=== PATIENT | male | born 1955 | race Two or more races ===

== ENCOUNTER 2018-02-25 18:56 | Inpatient (IN) | payer BC ==
[~2018-02-25] VITALS: Ht 167.6 cm; Wt 68.0 kg
--- NOTE | 2018-02-25 19:12 | NUR ---
PT C/O LEFT SIDED CP X 2 WEEKS RADIATES TO LEFT ARM AND LEFT SHOULDER BACK
[2018-02-25] MEDS ORDERED: MORPHINE SULFATE INJ 4 MG/ML DISP.SYRIN ONE (19:18)
[2018-02-25] MEDS ORDERED: ASPIRIN 325 MG TABLET ONE (19:19)
[2018-02-25] MEDS ORDERED: NITROGLYCERIN PACKET 1 GM PACKET ONE (19:19)
[2018-02-25 19:23] LABS: BASOPHILS # (AUTO) 0.1 /CMM (0.0-0.2); BASOPHILS % (AUTO) 0.7 % (0.0-2.0); EOSINOPHILS % (AUTO) 0.6 % (0.0-6.0); HEMATOCRIT 42 % (39-51); HEMOGLOBIN 14.6 g/dL (13.5-17.5); LYMPHOCYTES # (AUTO) 1.9 /CMM (0.8-4.8); LYMPHOCYTES % (AUTO) 22.2 % (20.0-44.0); MEAN CORPUSCULAR HGB CONC 34 g/dl (31.0-36.0); MEAN CORPUSCULAR VOLUME 89 fL (80-96); MONOCYTES # (AUTO) 0.4 /CMM (0.1-1.30); MONOCYTES % (AUTO) 4.8 % (2.0-12.0); NEUTROPHILS # (AUTO) 6.2 /CMM (1.8-8.9); NEUTROPHILS % (AUTO) 71.7 % (43.0-81.0); PLATELET COUNT (AUTO) 255 /CMM (150-450); RDW COEFFICIENT OF VARIATION 13.7 (11.5-15.0); RED BLOOD CELL COUNT(AUTO) 4.75 MIL/uL (4.5-6.0); WHITE BLOOD COUNT (AUTO) 8.7 K/uL (4.3-11.0)
[2018-02-25] MEDS ORDERED: NITROGLYCERIN PACKET 1 GM PACKET TD ONE (19:30)
[2018-02-25] MEDS ORDERED: MORPHINE SULFATE INJ 2 MG/ML DISP.SYRIN IV ONE (19:30)
[2018-02-25] MEDS ORDERED: ASPIRIN 325 MG TABLET PO ONE (19:30)
[2018-02-25 19:36] LABS: CALCIUM, SERUM 9.4 mg/dL (8.5-10.1); CARBON DIOXIDE 25 mmol/L (21-32); CHLORIDE 103 mmol/L (98-107); CREATININE 1.1 mg/dL (0.6-1.3); GLUCOSE 134 mg/dL (74-106); POTASSIUM 4.1 mmol/L (3.5-5.1); SODIUM SERUM 137 mmol/L (136-145); UREA NITROGEN, BLOOD 17 mg/dL (7-18)
[2018-02-25 19:38] LABS: INR 0.89 (0.85-1.15)
[2018-02-25 19:44] LABS: TROPONIN I < 0.017 ng/mL (0.00-0.056)
--- NOTE | 2018-02-25 20:26 | NUR ---
Called the Nursing [employer] and requested a telemetry bed for this patient.
[2018-02-25 20:30] VITALS: BP 128/74
--- NOTE | 2018-02-25 20:57 | NUR ---
PT IS ASSIGNED TO [facility]#: [id number], PT IS DIAGNOSED WITH CHEST PAIN, AND DR VALENTINE IS THE ACCEPTING MD.
--- NOTE | 2018-02-25 21:15 | NUR ---
GAVE REPORT TO BERNADETTE VALENTINE ADMITTING
[2018-02-25 21:30] VITALS: BP 128/74
[2018-02-25] MEDS ORDERED: ACETAMINOPHEN 325 MG TABLET PO PRN (22:00)
[2018-02-25] MEDS ORDERED: ZOLPIDEM TARTRATE 5 MG TABLET PO PRN (22:00)
[2018-02-25] MEDS ORDERED: HYDROCODONE/APAP 5/325MG 1 EACH TABLET PO PRN (22:00)
--- NOTE | 2018-02-25 22:49 | NUR ---
RN NOTES RECEIVE PT AT 2130 VIA GURNEY FROM [facility] A/O X4 , ATTACH TELE MONITOR TOLERATING ROOM AIR 99% HEAD TO TOE ASSESSMENT IS DONE SKIN IS INTACT. VSS. NO S/S OF DISTRESS, STABLE, SAFETY MEASURES IN PLACE, CALL LIGHT WITHIN REACH, WILL CONTINUE TO MONITOR
[2018-02-26] VITALS: BP 118/74
[2018-02-26 04:00] VITALS: BP 124/68
--- NOTE | 2018-02-26 06:45 | NUR ---
BAT CARRIER NOTES PT ASLEEP COMFORTABLY IN BED AND EASILY AWAKEN SEMI FOWLERS POSITION TOLERATING ROOM AIR 98%, ATTACH TO TELE MONITOR SR 69'S NOT IN RESPIRATORY DISTRESS. STABLE CONDITION. NO ACUTE CHANGES THROUGHOUT THE SHIFT. KEPT CLEAN AND DRY AND COMFORTABLE. NURSING CARE RENDERED. NEEDS ATTENDED AND ANTICIPATED. NO C/O OF PAIN. ON LOW BED TO ENSURE SAFETY, CALL LIGHT WITHIN REACH, WILL ENDORSE TO THE NEXT SHIFT CONTINUE PLAN OF CARE
[2018-02-26 06:48] LABS: BASOPHILS % (AUTO) 0.5 % (0.0-2.0); EOSINOPHILS % (AUTO) 2.1 % (0.0-6.0); HEMATOCRIT 38 % (39-51); HEMOGLOBIN 12.9 g/dL (13.5-17.5); LYMPHOCYTES # (AUTO) 2.1 /CMM (0.8-4.8); LYMPHOCYTES % (AUTO) 21.9 % (20.0-44.0); MEAN CORPUSCULAR HGB CONC 34 g/dl (31.0-36.0); MEAN CORPUSCULAR VOLUME 91 fL (80-96); MONOCYTES # (AUTO) 0.9 /CMM (0.1-1.30); MONOCYTES % (AUTO) 9.5 % (2.0-12.0); NEUTROPHILS # (AUTO) 6.4 /CMM (1.8-8.9); PLATELET COUNT (AUTO) 220 /CMM (150-450); RDW COEFFICIENT OF VARIATION 15.2 (11.5-15.0); RED BLOOD CELL COUNT(AUTO) 4.22 MIL/uL (4.5-6.0); WHITE BLOOD COUNT (AUTO) 9.7 K/uL (4.3-11.0)
[2018-02-26 06:59] LABS: TROPONIN I < 0.017 ng/mL (0.00-0.056)
[2018-02-26 07:14] LABS: CALCIUM, SERUM 8.6 mg/dL (8.5-10.1); CARBON DIOXIDE 25 mmol/L (21-32); CHLORIDE 107 mmol/L (98-107); GLUCOSE 104 mg/dL (74-106); POTASSIUM 4.6 mmol/L (3.5-5.1); SODIUM SERUM 139 mmol/L (136-145); UREA NITROGEN, BLOOD 23 mg/dL (7-18)
[2018-02-26 07:19] LABS: CHOLESTEROL 290 mg/dL (<200); HDL CHOLESTEROL 45 mg/dL (40-60); LDL 206 mg/dL (0-99); TRIGLYCERIDES 110 mg/dL (30-150)
[2018-02-26] MEDS ORDERED: PANTOPRAZOLE 40 MG TABLET.DR PO SCH (07:30)
--- NOTE | 2018-02-26 08:00 | NUR ---
rn notes received patient in the room resting in the bed. patient a/o x4, no c/o chest pain at this time, [id number]. v/s taken stable. patient refused morning medication. encouraged to express feelings and concerns. patient ambulatory. patient self care, using bathroom. call light within to patient.. continued monitoring.
[2018-02-26 08:04] VITALS: BP 116/68
[2018-02-26 09:00] VITALS: BP 116/68
[2018-02-26] MEDS ORDERED: ASPIRIN 81 MG TAB.CHEW PO SCH (09:00)
[2018-02-26] MEDS ORDERED: ATORVASTATIN 40 MG TABLET PO SCH (09:00)
[2018-02-26] MEDS ORDERED: METOPROLOL TARTRATE 50 MG TABLET PO SCH (09:00)
--- NOTE | 2018-02-26 09:30 | NUR ---
rn notes patient seen by Dr. VALENTINE, patient going to d/c home. patient will follow primary electrician sound.
--- NOTE | 2018-02-26 10:33 | NUR ---
discharge notes patient discharge at this time going home. patient a/o x4. no c/o pain at this time, v/s stable, no respiratory distress. med reconciliation and discharge order reviewed and explained to. patient sign paperwork, belonging with the patient. patient corn picker by . escorted patient to the lobby for safety.
== END 2018-02-26 10:30 | disposition home or self-care (01) | DRG 313 ==
LOC: ER 19:08 → TELE 21:07 → MED 02-26 09:07
PROVIDERS: ADMIT Internal Medicine; ATTEND Internal Medicine
DX: R07.89 Other chest pain (principal); E78.5 Hyperlipidemia, unspecified; F17.200 Nicotine dependence, unspecified, uncomplicated
CPT/HCPCS: 36415; 71045-TC; 80048-TC; 80061-TC; 84484-TC; 85025-TC; 85730-TC; 87081-TC; A4606; J2270; Z7610

== ENCOUNTER 2024-07-23 13:16 | Emergency (ER) | payer BC ==
[~2024-07-23] VITALS: Ht 165.1 cm; Wt 72.6 kg
[2024-07-23 13:34] VITALS: TEMP 97.5
--- NOTE | 2024-07-23 13:43 | NUR ---
TO ER BED 12. NO APPARENT CHANGE IN CONDITION
--- NOTE | 2024-07-23 13:45 | NUR ---
ABD PAIN X 1 DAY, DENIES OTHER COMPLAINTS
--- NOTE | 2024-07-23 14:00 | NUR ---
BLOOD COLLECTED AND SENT TO LAB
[2024-07-23] MEDS ORDERED: MAG HYDROX/AL HYDROX/SIMETH 30 ML UDC ONE (14:11)
[2024-07-23] MEDS ORDERED: FAMOTIDINE (20 MG) 20 MG TABLET ONE (14:12)
[2024-07-23] MEDS: FAMOTIDINE (20 MG) 20 MG TABLET PO ONE (14:24)
[2024-07-23] MEDS: MAG HYDROX/AL HYDROX/SIMETH 30 ML UDC PO ONE (14:24)
[2024-07-23] MEDS: IV NS 0.9% 500 ML BAG IV ONE (14:24)
[2024-07-23 14:31] LABS: BASOPHILS # (AUTO) 0.1 K/uL (0.0-0.2); BASOPHILS % (AUTO) 0.8 % (0.0-2.0); EOSINOPHILS # (AUTO) 0.3 K/uL (0.0-0.7); EOSINOPHILS % (AUTO) 3.1 % (0.0-6.0); HEMATOCRIT 45 % (39-51); LYMPHOCYTES # (AUTO) 2.1 K/uL (0.8-4.8); MEAN CORPUSCULAR HEMOGLOBIN 30 PG (26.0-33.0); MEAN CORPUSCULAR HGB CONC 33 g/dl (31.0-36.0); MEAN CORPUSCULAR VOLUME 91 fL (80-96); MONOCYTES # (AUTO) 0.7 K/uL (0.1-1.30); MONOCYTES % (AUTO) 8.6 % (2.0-12.0); NEUTROPHILS % (AUTO) 61.5 % (43.0-81.0); PLATELET COUNT (AUTO) 262 K/uL (150-450); RED BLOOD CELL COUNT(AUTO) 4.98 MIL/uL (4.5-6.0); RED CELL DISTRIBUTION WIDTH 15.1 % (11.5-15.0); WHITE BLOOD COUNT (AUTO) 8.2 K/uL (4.3-11.0)
[2024-07-23 14:47] LABS: ALBUMIN 3.4 g/dL (3.4-5.0); BILIRUBIN,DIRECT 0.1 mg/dL (0.0-0.2); BILIRUBIN,TOTAL 0.2 mg/dL (0.2-1.0); CREATININE 1.1 mg/dL (0.6-1.3); POTASSIUM 4.3 mmol/L (3.5-5.1); TOTAL PROTEIN, SERUM 7.3 g/dL (6.4-8.2)
--- NOTE | 2024-07-23 15:41 | NUR ---
Patient discharged to home in stable condition. Written and verbal after care instructions given. Patient verbalizes understanding of instruction.
[2024-07-23 15:42] VITALS: BP 129/75; O2SAT 99
== END 2024-07-23 15:43 | disposition home or self-care (01) ==
LOC: ER 13:17
DX: R10.33 Periumbilical pain (principal); N28.89 Other specified disorders of kidney and ureter; R10.13 Epigastric pain; I10 Essential (primary) hypertension; E78.5 Hyperlipidemia, unspecified; G89.29 Other chronic pain; M54.89 Other dorsalgia
CPT/HCPCS: 99284; 74176; 96360; 76705; 93005; 85025; 80048; 83690; 80076; 36415; J7040